=== PATIENT | male | born 1980 | race Caucasian/White ===

== ENCOUNTER 2017-12-19 07:06 | Emergency (ER) | payer BC ==
--- NOTE | 2017-12-19 07:38 | EDM.PDOC ---
ED HPI GENERAL MEDICAL PROBLEM - General Chief Complaint: General Stated Complaint: Left hip, Left rib pain Time Seen by Provider: 12/19/17 07:30 Source of Information: Reports: Patient, Old Records ([facility] chart/EMR) History Limitations: Reports: No Limitations. Denies: Intoxication - History of Present Illness INITIAL COMMENTS - FREE TEXT/NARRATIVE: Patient drove himself to the emergency room via private automobile for evaluation of progressive bruising, left hip, and left chest wall pain initial mild left forearm pain secondary to a minor fall at his home 2 days ago. The patient was shoveling snow when he slipped on the ice and fell on his left side. He did take 650 mg of aspirin at 8 AM this morning and also took all of his morning medications including his Coumadin. No history of significant head injury, loss of consciousness, change in mental status, paresthesias, neurological deficits, etc. The patient has not used topical treatments to this point. Note that the patient has had a mild nonproductive cough during the last couple of days and has also been using Mucinex. No known exposure to infection, fever, dyspnea, wheezing, etc. The patient denies any chest pain/pressure, heart flutter, dizziness, orthostasis, orthopnea, diaphoresis, paresthesias, recent decreased exercise tolerance, or any other anginal-type symptoms. No recent history of abdominal pain, heartburn, nausea, diarrhea, melena, gross hematochezia, or any food intolerance, including fatty foods, etc.. He denies any gross hematuria or other UTI symptoms. No history of recent headaches, visual changes, diplopia, change in mental status, or other change in neurological status. The patient did go to work yesterday. Onset: Sudden Onset Date: 12/17/17 Onset Time: 14:30 Duration: Constant, Getting Worse Location: Reports: Chest, Upper Extremity, Left, Lower Extremity, Left. Denies : Head, Face, Neck, Abdomen, Back, Pelvis, Upper Extremity, Right, Lower Extremity, Right, Radiates to Quality: Reports: Ache, Sharp, Stabbing Severity: Severe Improves with: Reports: Rest Worsens with: Reports: Movement Context: Reports: Trauma (As above) Associated Symptoms: Reports: Chest Pain (Chest wall), Cough. Denies: Confusion , cough w sputum, Diaphoresis, Fever/Chills, Headaches, Loss of Appetite, Malaise, Nausea/Vomiting, Rash, Seizure, Shortness of Breath, Syncope, Weakness Treatments ELECTRICIAN RADIO: Reports: Aspirin Left Thoracic Pain Score (Numeric/FACES): 9 Left Arm Pain Score (Numeric/FACES): 4 Left Hip Pain Score (Numeric/FACES): 9 - Related Data Allergies Allergy/AdvReac Type Severity Reaction Status Date / Time No Known Allergies Allergy Verified 12/19/17 07:34 Home Meds: Home Meds Lisinopril/Hydrochlorothiazide [Lisinopril-Hctz 20-12.5 mg Tab] 1 tab PO DAILY 12/19/17 [History] busPIRone [Buspar] 5 mg PO DAILY 12/19/17 [History] busPIRone [Buspar] 10 mg PO BEDTIME 12/19/17 [History] Past Medical History HEENT History: Reports: Impaired Vision, Other (See Below). Denies: Allergic Rhinitis, Cataract, Glaucoma, Hard of Hearing, Macular Degeneration, Retinal Detachment Other HEENT History: Patient wears reading glasses Cardiovascular History: Reports: Blood Clots/VTE/DVT, Heart Murmur, Hypertension , Other (See Below) Other Cardiovascular History: Severe mitral valve insufficiency with surgery as below. DVT of the left popliteal and posterior left tibial veins on 07/10/15 secondary to antiphospholipid syndrome with chronic Coumadin therapy Respiratory History: Reports: Intubation, Previous, Sleep Apnea, SOB. Denies: Asthma, COPD, Intubation, Difficult, PE, Pneumothorax, TB Gastrointestinal History: Reports: Diverticulosis, GERD, Other (See Below). Denies: Bowel Obstruction, Celiac Disease, Cholelithiasis, GI Bleed, Hepatitis, Inflammatory Bowel Disease, Irritable Bowel Syndrome, Jaundice, Pancreatitis, PUD Other Gastrointestinal History: LFTs elevation possibly secondary to fatty liver Genitourinary History: Reports: Renal Calculus, Other (See Below). Denies: Acute Renal Failure, BPH, Chronic Renal Insuffiency, STD, Urinary Incontinence, UTI, Recurrent Other Genitourinary History: Urolithiasisside unknown with spontaneous passage Musculoskeletal History: Reports: Arthritis, Back Pain, Chronic, Fracture, Gout , Neck Pain, Chronic, Osteoarthritis, Other (See Below). Denies: Amputation, RA , SLE Other Musculoskeletal History: T10T11 anterior vertebral on body compression fractures by MRI on 07/20/11. Left wrist fracture at about 8 years of age. Multiple bilateral finger fractures secondary to Judo between 1989 and 1994. Neurological History: Reports: CVA, Headaches, Chronic, TIA, Other (See Below). Denies: Cerebral Aneurysms, Concussion, Head Trauma, Migraines, MS, Parkinson' s, Seizure Other Neuro History: Nonspecific amaurosis fugax since 2009 with chronic headaches and postoperative right-sided CVA after mechanical valve replacement surgery in 2016 as below. Venous right frontal and frontoparietal CVA on . There are no chronic deficits from previous CVAs. Withdrawal symptoms from his alcohol use in the past but no seizures, etc. Psychiatric History: Reports: Anxiety, Depression, Psych Hospitalization(s), Suicidal Ideation, Other (See Below) Other Psychiatric History: History of alcohol and tobacco abuse with experimentation of illicit drugs as below. Inpatient treatment for substance abuse and suicidal ideation on 06/08/14 Endocrine/Metabolic History: Reports: None. Denies: Diabetes, Type I, Diabetes , Type II, Diabetes Mellitus, Type 3c, Hypothyroidism, IDDM Hematologic History: Reports: Blood Transfusion(s), Other (See Below). Denies: Anemia, Iron Deficiency Other Hematologic History: Blood transfusions after mitral valve replacement in 2016 as above. History of antiphospholipid disorder. Immunologic History: Reports: None. Denies: AIDS, HIV, SLE Oncologic (Cancer) History: Reports: None. Denies: Basal Cell Carcinoma, Hodgkin's Lymphoma, Leukemia, Lymphoma, Malignant Melanoma, Non-Hodgkin's Lymphoma, Squamous Cell Carcinoma Dermatologic History: Denies: Eczema, Psoriasis - Past Surgical History Head Surgeries/Procedures: Reports: None HEENT Surgical History: Reports: Oral Surgery, Other (See Below). Denies: Adenoidectomy, Cataract Surgery, Detached Retina, Eye Surgery, Laser Surgery, LASIK, Myringotomy w Tube(s), Naso-Sinus Surgery, Tonsillectomy Other HEENT Surgeries/Procedures: [place] teeth extraction 4 initially top 2 at age 16 with bottom 2 at age 18 Cardiovascular Surgical History: Reports: Valve Replacement, Other (See Below) Other Cardiovascular Surgeries/Procedures: Mechanical mitral valve replacement on 01/13/16 Respiratory Surgical History: Reports: None. Denies: Thoracentesis GI Surgical History: Denies: Appendectomy, Cholecystectomy, Colonoscopy, EGD, Hernia, Abdominal, Hernia, Inguinal, Hernia Repair/Other Male Surgical History: Reports: Circumcision, Other (See Below). Denies: Vasectomy Other Male Surgeries/Procedures: Circumcision as an Endocrine Surgical History: Reports: None. Denies: Thyroid Biopsy Neurological Surgical History: Reports: None. Denies: C-Spine, Discectomy, Laminectomy, Lumbar Spine, Sacral Spine, Spinal Fusion, Vertebroplasty Musculoskeletal Surgical History: Reports: None. Denies: Arthroscopic Procedure , Carpal Tunnel, Ganglion Cyst, Joint Replacement, ORIF, Shoulder Surgery Oncologic Surgical History: Reports: None Dermatological Surgical History: Reports: None - Past Imaging History Past Imaging History: Reports: Cardiac Echo (01/01/16 with mitral valve disorder as above with subsequent transesophageal echocardiogram on 01/07/16 with echocardiogram on 07/13/11 showing only mild mitral valve disease with ejection fraction of 56%), Carotid US (10/11/10), CAT Scan (Negative CTA of the chest on 04/15/16. Soft tissue ultrasound of the right ear on 02/02/12. CT of the head on and 10/11/10.), MRA (Head on 10/20/10), MRI (MRA of the brain on 07/13/11 with right CVA as above with previous normal MRI of the brain on 12/01/10. MRI of the cervical and thoracic spines on 07/20/11), Stress Testing (Low level cardiac stress test on 01/21/16), Ultrasound (Soft tissue ultrasound of the right ear on 02/02/12. Renal ultrasound on 08/13/10), Venous Doppler (Lower extremities bilaterally on 07/10/15 with findings as above) Social & Family History - Tobacco Use Smoking Status *Q: Current Every Day Smoker Tobacco Use Within Last Twelve Months: Cigarettes Years of Tobacco use: 20 Packs/Tins Daily: 0.5 (Started smoking at age 17) Used Tobacco, but Quit: No Smoking Cessation Information Provided To Patient: Yes Second Hand Smoke Exposure: No Second Hand Smoke Education Provided: No - Alcohol Use Alcohol Use History: Yes Days Per Week of Alcohol Use: 3 (Previous history of alcohol abuse with treatment as above. Note DWI at age 32) Number of Drinks Per Day: 2 Total Drinks Per Week: 6 Alcohol Use in Last Twelve Months: Yes - Recreational Drug Use Recreational Drug Use: Yes Drug Use in Last 12 Months: No Recreational Drug Type: Reports: Amphetamines (Speed), Cocaine, LSD (Acid), Marijuana/Hashish, Methamphetamine, Oxycodone, Psilocybin (Mushrooms). Denies: Heroin, Inhalants (Glues, Solvents, Aerosols), Morphine Other Recreational Drug Type: Illicit drug use as above between ages 20 and 25 with no drug treatment by history Recreational Drug Use Frequency: Socially Recreational Drug Route: Reports: Inhaled. Denies: Intravenous - Living Situation & Occupation Living situation: Reports: ( 2 stepchildren with 2 natural children, however One child given up for adoption in 1979), with Family ( and 3 children) Occupation: Employed ([employer]) ED ROS GENERAL - Review of Systems Review Of Systems: ROS reveals no pertinent complaints other than HPI. ED EXAM, GENERAL - Physical Exam Exam: See Below Exam Limited By: No Limitations General Appearance: Alert, WD/WN, No Apparent Distress Head: Normocephalic, Other (Small 1 cm superficial scratch over the left cheek) . No: Facial Swelling, Facial Tenderness, Sinus Tenderness Neck: Normal Inspection, Supple, Non-Tender, Full Range of Motion. No: Lymphadenopathy (L), Lymphadenopathy (R), Thyromegaly Respiratory/Chest: No Respiratory Distress, Lungs Clear, Normal Breath Sounds, No Accessory Muscle Use, Other (1012 cm in diameter moderate ecchymosis over the lateral mid left axillary chest region). No: Chest Non-Tender (Moderate localized palpation pain at site of bruising as below with no crepitation, deformity, or sign of fracture), Pleural Rub, Retractions, Splinting Cardiovascular: Normal Peripheral Pulses, Regular Rate, Rhythm, No Edema, No Gallop, No JVD, No Murmur, No Rub, Other (Mechanical mitral valve click). No: Gallop/S3, Gallop/S4, Friction Rub GI/Abdominal: Normal Bowel Sounds, Soft, Non-Tender, No Organomegaly, No Distention, No Abnormal Bruit, No Mass, Pelvis Stable. No: Guarding (Male) Exam: Deferred Rectal (Males) Exam: Deferred Back Exam: Normal Inspection, Full Range of Motion. No: CVA Tenderness (L), CVA Tenderness (R), Muscle Spasm Extremities: No Pedal Edema, Normal Capillary Refill, Leg Pain (Large ecchymosis of 16 cm in diameter over the lateral surface of the left hip with moderate localized tenderness. Additional 2 cm minimal bruising over the mid ulnar aspect of the left forearm with no significant localized tenderness, deformity, etc.), Limited Range of Motion (Left hip secondary to pain and bruising with no instability, subluxation, deformity, or sign of fracture). No : Tomer's Sign, Increased Warmth Neurological: Alert, Oriented, CN II-XII Intact, Normal Cognition, Normal Gait, Normal Reflexes, No Motor/Sensory Deficits Psychiatric: Normal Affect, Normal Mood Skin Exam: Warm, Dry, Ecchymosis (As above), Wound/Incision (Superficial facial abrasion as above). No: Diaphoretic, Petechiae Lymphatic: No Adenopathy Course - Vital Signs Last Recorded V/S: Last Vital Signs Temp 37.0 C 12/19/17 07:07 Pulse 108 H 12/19/17 07:07 Resp 16 12/19/17 07:07 BP 135/78 12/19/17 07:07 Pulse Ox 98 12/19/17 07:07 Vital Signs - 24 hr 12/19/17 12/19/17 07:07 09:02 Temperature [ 37.0 C Oral] Pulse, 108 H 88 Peripheral [ Left Pulse Oximetry] Respiratory 16 14 Rate Blood Pressure 135/78 112/65 [Left Upper Arm ] O2 Sat by Pulse 98 100 Oximetry - Orders/Labs/Meds Orders: Active Orders 24 hr Category Date Time Status Peripheral IV Care [RC] . DIRECTED Care 12/19/17 08:37 Ordered Hip Min 2V or 3V w Pelvis Lt [CR] Stat Exams 12/19/17 07:39 Ordered Ribs 2V w Chest Lt [CR] Stat Exams 12/19/17 07:40 Ordered Phytonadione [AquaMephyton] 5 mg Med 12/19/17 08:35 Ordered Sodium Chloride 0.9% [Normal Saline] 50 ml IV NOW Sodium Chloride 0.9% [Saline Flush] Med 12/19/17 08:37 Ordered 10 ml FLUSH ASDIRECTED PRN Obtain Past Medical Record [OM.PC] Routine Oth 12/19/17 07:38 Active Peripheral IV Insertion Adult [OM.PC] Routine Oth 12/19/17 08:37 Ordered Medication Orders Phytonadione 5 mg/ Sodium (Chloride) 50.5 mls @ 100 mls/hr IV NOW ONE Stop: 12/19/17 09:05 Last Admin: 12/19/17 08:45 Dose: 100 mls/hr Sodium Chloride (Saline Flush) 10 ml FLUSH ASDIRECTED PRN PRN Reason: Keep Vein Open Last Admin: 12/19/17 08:45 Dose: 10 ml Labs: Laboratory Tests 12/19/17 12/19/17 12/19/17 Range/Units 07:45 07:45 07:45 WBC 4.1 (4.0-10.2) K/uL RBC 4.31 L (4.33-5.41) M/uL Hgb 14.1 (13.1-16.8) g/dL Hct 41.0 (39.0-49.0) % MCV 95.1 D (84.0-98.0) fL MCH 32.7 (28.2-33.3) pg MCHC 34.4 (31.7-36.0) g/dL RDW 15.7 H (11.2-14.1) % Plt Count 184 D (150-350) K/uL Neut % (Auto) 65.6 (45.0-80.0) % Lymph % (Auto) 19.7 (10.0-50.0) % [place] % (Auto) 12.3 (2.0-14.0) % Eos % (Auto) 2.2 (0.0-5.0) % Baso % (Auto) 0.2 (0.0-2.0) % Neut # (Auto) 2.67 (1.40-7.00) K/uL Lymph # (Auto) 0.80 (0.50-3.50) K/uL [place] # (Auto) 0.50 (0.00-1.00) K/uL Eos # (Auto) 0.09 (0.00-0.50) K/uL Baso # (Auto) 0.01 (0.00-0.20) K/uL PT 86.3 H (9.8-11.7) SEC INR 7.7 H* Sodium 137 (136-145) mmol/L Potassium 4.2 (3.5-5.1) mmol/L Chloride 99 (98-107) mmol/L Carbon Dioxide 28.0 (21.0-32.0) mmol/L BUN 15 (7-18) mg/dL Creatinine 0.97 (0.51-1.17) mg/dL Est Cr Clr Drug Dosing 124.62 mL/min Estimated GFR (MDRD) > 60 mL/min Glucose 114 H (74-106) mg/dL Calcium 9.5 (8.5-10.1) mg/dL Total Bilirubin 1.0 (0.2-1.0) mg/dL AST 54 H (15-37) U/L ALT 91 H (12-78) U/L Alkaline Phosphatase 68 (46-116) IU/L Total Protein 7.5 (6.4-8.2) g/dL Albumin 3.8 (3.4-5.0) g/dL Meds: Medications Generic Name Dose Route Start Last Admin Trade Name Freq PRN Reason Stop Dose Admin Phytonadione 5 mg/ Sodium 50.5 mls @ 100 mls/hr 12/19/17 08:35 12/19/17 08:45 Chloride IV 12/19/17 09:05 100 mls/hr NOW ONE Administration Sodium Chloride 10 ml 12/19/17 08:37 12/19/17 08:45 Saline Flush FLUSH 10 ml ASDIRECTED PRN Administration Keep Vein Open - Radiology Interpretation Free Text/Narrative:: X-rays of the chest, one view, with lateral views of the left ribs shows no evidence of fracture, pneumothorax, pulmonary infiltrates/contusions, CHF or cardiomegaly. Note status post medial sternotomy and mechanical mitral valve replacement. 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 Note secondary to rotational artifact from the right hip 2 additional views of the right hip were taken verify absence of any abnormalities Departure - Departure Time of Disposition: 09:35 Disposition: Home, Self-Care 01 Condition: Good Clinical Impression: Multiple contusions, History of mitral valve replacement with mechanical valve , Mixed anxiety depressive disorder, Tobacco abuse counseling, Peptic reflux disease, Elevated INR, Elevated LFTs Hypertension Qualifiers: Hypertension type: essential hypertension Qualified Code(s): I10 - Essential ( primary) hypertension Gout Qualifiers: Gout site: unspecified site Gout etiology: unspecified cause Chronicity: chronic Presence of tophus: without tophus Qualified Code(s): M1A.9XX0 - Chronic gout, unspecified, without tophus (tophi) Sleep apnea Qualifiers: Sleep apnea type: unspecified type Qualified Code(s): G47.30 - Sleep apnea, unspecified COPD (chronic obstructive pulmonary disease) Qualifiers: COPD type: emphysema Emphysema type: panlobular Qualified Code(s): J43.1 - Panlobular emphysema - Discharge Information Instructions: Warfarin: What You Need to Know, Contusion, [id number] Referrals: Dorcas Brunson NP [Primary Care Provider] - Forms: ED Department Discharge, ED Return to Work/School Form Additional Instructions: 1. Follow up with your regular provider tomorrow for reevaluation and recommended repeat CBC and PT/INR. Notify your provider at that time that that you did receive vitamin K in your veins during today's ER visit 2. BenGay or equivalent, heating pad, and/or ice packs as directed. 3. Strict no fall and injury precautions until released by your regular provider 4. Stop all tobacco use SHIRLENE as directed/per provided information and consider contacting Quit LIne, etc.. 5. Strict no use of Coumadin, aspirin, ibuprofen, Aleve, or other NSAIDs until otherwise directed by your regular provider 6. Work excuse- See Form 7. Discontinue all alcohol use as discussed/recommended 8. Recommend repeat LFTs within the next 7-10 days 9. Discontinue use of Mucinex and contact your regular provider prior to initiating any OTC medications on a regular basis secondary to current Coumadin therapy 10. Discuss with your regular provider whether you are a candidate for CPAP therapy - Problem List & Annotations (1) Elevated INR SNOMED Code(s): 170998872 Code(s): R79.1 - ABNORMAL COAGULATION PROFILE Status: Acute Priority: High Current Visit: Yes Onset Date: 12/19/17 Annotation/Comment:: The patient insists that he has not used any other medications other than one dose of aspirin and only some Mucinex during the last couple of days as above. Current normal INR 3.1 one week ago. He was given information concerning Coumadin therapy. His Coumadin will be held with close follow-up by his regular provider as per discharge instructions. IV vitamin K given. He was also provided a work excuse with strict fall, injury, etc. precautions extensively discussed. The patient was extensively counseled on the importance of close follow-up of his INRs by his regular provider possibly on a daily basis secondary to IV vitamin K therapy today. (2) Multiple contusions SNOMED Code(s): 992779116 Code(s): T07.XXXA - UNSPECIFIED MULTIPLE INJURIES, INITIAL ENCOUNTER Status : Acute Priority: High Current Visit: Yes Onset Date: 12/17/17 Annotation/Comment:: Contusions with no evidence of significant injury, fracture , etc.. Symptomatic relief as per discharge instructions. Note elevated INR (3) History of mitral valve replacement with mechanical valve SNOMED Code(s): 77546509950607 Code(s): Z95.2 - PRESENCE OF PROSTHETIC HEART VALVE Status: Chronic Priority: Medium Current Visit: Yes Onset Date: 01/13/16 Annotation/ Comment:: No anginal type symptoms as above. Note elevated INR with previous history of antiphospholipid lipid syndrome with chronic Coumadin therapy (4) Elevated LFTs SNOMED Code(s): 856408596 Code(s): R79.89 - OTHER SPECIFIED ABNORMAL FINDINGS OF BLOOD CHEMISTRY Status: Chronic Priority: Medium Current Visit: Yes Annotation/Comment:: History of elevated LFTs by review of medical records. He does not know his cholesterol status. LFTs elevation likely secondary to his alcohol use and possible fatty liver. Close follow-up by his regular provider (5) Antiphospholipid syndrome SNOMED Code(s): 94009416 Code(s): D68.61 - ANTIPHOSPHOLIPID SYNDROME Status: Chronic Priority: High Current Visit: Yes Annotation/Comment:: Elevated INR as above with previous history of DVT (6) COPD (chronic obstructive pulmonary disease) SNOMED Code(s): 22516061 Code(s): J44.9 - CHRONIC OBSTRUCTIVE PULMONARY DISEASE, UNSPECIFIED Status : Chronic Priority: Medium Current Visit: Yes Annotation/Comment:: COPD by chest x-ray with no current medical therapy. Only minimal mostly viral bronchitic type symptoms at this time. Consider PFTs pending on his clinical course. Note current tobacco use Qualifiers: COPD type: emphysema Emphysema type: panlobular Qualified Code(s): J43.1 - Panlobular emphysema (7) Gout SNOMED Code(s): 31326463 Code(s): M10.9 - GOUT, UNSPECIFIED Status: Chronic Priority: Medium Current Visit: Yes Annotation/Comment:: History of distant gout with his osteoarthritis otherwise in good control. Note probable coxarthrosis bilaterally by today's x-rays with no significant current complaints Qualifiers: Gout site: unspecified site Gout etiology: unspecified cause Chronicity: chronic Presence of tophus: without tophus Qualified Code(s): M1A.9XX0 - Chronic gout, unspecified, without tophus (tophi) (8) Hypertension SNOMED Code(s): 33894817 Code(s): I10 - ESSENTIAL (PRIMARY) HYPERTENSION Status: Chronic Priority : Medium Current Visit: Yes Annotation/Comment:: Stable by history and in the emergency room Qualifiers: Hypertension type: essential hypertension Qualified Code(s): I10 - Essential (primary) hypertension (9) Mixed anxiety depressive disorder SNOMED Code(s): 442209914 Code(s): F41.8 - OTHER SPECIFIED ANXIETY DISORDERS Status: Chronic Priority: Medium Current Visit: Yes Annotation/Comment:: Stable by history with history of alcohol and illicit drug abuse (10) Peptic reflux disease SNOMED Code(s): 16026354 Code(s): K21.9 - GASTRO-ESOPHAGEAL REFLUX DISEASE WITHOUT ESOPHAGITIS Status: Chronic Priority: Medium Current Visit: Yes Annotation/Comment:: Stable by history (11) Sleep apnea SNOMED Code(s): 06157933 Code(s): G47.30 - SLEEP APNEA, UNSPECIFIED Status: Chronic Current Visit : Yes Annotation/Comment:: Patient has never used CPAP. Discuss further with his regular provider as per discharge instructions Qualifiers: Sleep apnea type: unspecified type Qualified Code(s): G47.30 - Sleep apnea , unspecified (12) GERD (gastroesophageal reflux disease) SNOMED Code(s): 698304671 Code(s): K21.9 - GASTRO-ESOPHAGEAL REFLUX DISEASE WITHOUT ESOPHAGITIS Status: Chronic Current Visit: Yes Annotation/Comment:: Stable by history Qualifiers: Esophagitis presence: without esophagitis Qualified Code(s): K21.9 - Gastro -esophageal reflux disease without esophagitis - Problem List Review Problem List Initiated/Reviewed/Updated: Yes - My Orders Last 24 Hours: My Active Orders 12/19/17 07:38 Obtain Past Medical Record [OM.PC] Routine 12/19/17 07:39 Hip Min 2V or 3V w Pelvis Lt [CR] Stat 12/19/17 07:40 Ribs 2V w Chest Lt [CR] Stat 12/19/17 08:35 Phytonadione [AquaMephyton] 5 mg Sodium Chloride 0.9% [Normal Saline] 50 ml IV NOW 12/19/17 08:37 Peripheral IV Care [RC] . DIRECTED Sodium Chloride 0.9% [Saline Flush] 10 ml FLUSH ASDIRECTED PRN Peripheral IV Insertion Adult [OM.PC] Routine - Assessment/Plan Last 24 Hours: My Active Orders 12/19/17 07:38 Obtain Past Medical Record [OM.PC] Routine 12/19/17 07:39 Hip Min 2V or 3V w Pelvis Lt [CR] Stat 12/19/17 07:40 Ribs 2V w Chest Lt [CR] Stat 12/19/17 08:35 Phytonadione [AquaMephyton] 5 mg Sodium Chloride 0.9% [Normal Saline] 50 ml IV NOW 12/19/17 08:37 Peripheral IV Care [RC] . DIRECTED Sodium Chloride 0.9% [Saline Flush] 10 ml FLUSH ASDIRECTED PRN Peripheral IV Insertion Adult [OM.PC] Routine Assessment:: As above Plan: As above. Extensive precautions were given to the patient, who is in agreement with the treatment plan. See Patient Instructions for further treatment and plan.
[2017-12-19 08:12] LABS: CHLORIDE,CL 99 mmol/L (98-107); SODIUM,NA 137 mmol/L (136-145)
[2017-12-19] MEDS ORDERED: Phytonadione 5 MG in Sodium Chloride 0.9% 50 ML IV ONE (08:35)
[2017-12-19] MEDS: Sodium Chloride 0.9% 10 ML Syringe FLUSH PRN ×2 (08:45→09:31)
[2017-12-19 09:02] VITALS: BP 112/65
== END 2017-12-19 09:35 | disposition home or self-care (01) ==
LOC: LL.ED 07:06
DX: S70.02XA Contusion of left hip, initial encounter (principal); S20.212A Contusion of left front wall of thorax, initial encounter; S50.12XA Contusion of left forearm, initial encounter; S00.81XA Abrasion of other part of head, initial encounter; I10 Essential (primary) hypertension; F41.8 Other specified anxiety disorders; K21.9 Gastro-esophageal reflux disease without esophagitis; M1A.9XX0 Chronic gout, unspecified, without tophus (tophi); G47.30 Sleep apnea, unspecified; J43.1 Panlobular emphysema; F17.210 Nicotine dependence, cigarettes, uncomplicated; R79.89 Other specified abnormal findings of blood chemistry; R79.1 Abnormal coagulation profile; Z95.2 Presence of prosthetic heart valve; Z71.6 Tobacco abuse counseling; Z79.899 Other long term (current) drug therapy; W00.0XXA Fall on same level due to ice and snow, initial encounter; Y93.H1 Activity, digging, shoveling and raking; Y92.009 Unspecified place in unspecified non-institutional (private) residence as the place of occurrence of the external cause
CPT/HCPCS: 36415; 71101; 73502; 80053; 85025; 85610; 96365; 99284; J3430; J7050

== ENCOUNTER 2018-06-10 19:35 | Emergency (ER) | payer BC ==
[2018-06-10 20:14] LABS: CHLORIDE,CL 101 mmol/L (98-107); SODIUM,NA 138 mmol/L (136-145)
[2018-06-10] MEDS ORDERED: Sodium Chloride 0.9% 10 ML Syringe FLUSH PRN (20:58)
[2018-06-10] MEDS ORDERED: LORazepam 1 MG Tab PO ONE (21:08)
[2018-06-10] MEDS ORDERED: Phytonadione ORAL 2.5mg/2.5ml Soln Simple Syrup U/D PO ONE (21:08)
--- NOTE | 2018-06-10 21:17 | EDM.PDOC ---
ED HPI GENERAL MEDICAL PROBLEM - General Chief Complaint: General Stated Complaint: fell last night and hurt back, pt intoxicated also Time Seen by Provider: 06/10/18 20:06 Source of Information: Reports: Patient History Limitations: Reports: Intoxication - History of Present Illness INITIAL COMMENTS - FREE TEXT/NARRATIVE: Patient comes to ER with presenting complaint of falling last night. Says he slipped on stairs, fell directly onto buttocks/low back, and slid on his rear/ back down the steps. No LOC. Denies hitting head. Has noticed a large bruise develop in this area since then and is concerned as he takes Coumadin. Says last INR was several weeks ago and was "1.2". Patient is obviously intoxicated. Admits to drinking when asked. Has been seen at our facility multiple times previously for ETOH related falls/issues. Patient also admits feeling suicidal. Says he has access to a gun. Hear's voices that tell him he is worthless. Plan is to shoot self. Denies homicidal ideation but admits that he is bullied by one particular person at work and has had thoughts of injuring him at time. Was recently at [facility] for 24 hours due to psych concerns but was released with no follow up plans. Pt has been to detox/treatment three times without improvement in his drinking. He says he wants help with his drinking and suicidal thoughts but does not know what to do. . Lives in basement of house. Spouse does not talk to him because of his alcoholism. Has one child and two stepchildren. Had DUI about 6 months ago per self report. Is not supposed to be driving and should be wearing an ankle bracelet. Admits to driving to work but says he does not drive anywhere else. Has cast on right arm due to self-reported metacarpal fracture. - Related Data Allergies Allergy/AdvReac Type Severity Reaction Status Date / Time No Known Allergies Allergy Verified 06/10/18 19:37 Home Meds: Home Meds Lisinopril/Hydrochlorothiazide [Lisinopril-Hctz 20-12.5 mg Tab] 1 tab PO DAILY 12/19/17 [History] busPIRone [Buspar] 5 mg PO DAILY 12/19/17 [History] busPIRone [Buspar] 10 mg PO BEDTIME 12/19/17 [History] Warfarin [Coumadin] 15 mg PO DAILY 06/10/18 [History] Past Medical History - Past Health History Medical/Surgical History: Denies Medical/Surgical History HEENT History: Reports: Impaired Vision, Other (See Below). Denies: Allergic Rhinitis, Cataract, Glaucoma, Hard of Hearing, Macular Degeneration, Retinal Detachment Other HEENT History: Patient wears reading glasses Cardiovascular History: Reports: Blood Clots/VTE/DVT, Heart Murmur, Hypertension , Other (See Below) Other Cardiovascular History: Severe mitral valve insufficiency with surgery as below. DVT of the left popliteal and posterior left tibial veins on 07/10/15 secondary to antiphospholipid syndrome with chronic Coumadin therapy Respiratory History: Reports: Intubation, Previous, Sleep Apnea, SOB. Denies: Asthma, COPD, Intubation, Difficult, PE, Pneumothorax, TB Gastrointestinal History: Reports: Diverticulosis, GERD, Other (See Below). Denies: Bowel Obstruction, Celiac Disease, Cholelithiasis, GI Bleed, Hepatitis, Inflammatory Bowel Disease, Irritable Bowel Syndrome, Jaundice, Pancreatitis, PUD Other Gastrointestinal History: LFTs elevation possibly secondary to fatty liver Genitourinary History: Reports: Renal Calculus, Other (See Below). Denies: Acute Renal Failure, BPH, Chronic Renal Insuffiency, STD, Urinary Incontinence, UTI, Recurrent Other Genitourinary History: Urolithiasisside unknown with spontaneous passage Musculoskeletal History: Reports: Arthritis, Back Pain, Chronic, Fracture, Gout , Neck Pain, Chronic, Osteoarthritis, Other (See Below). Denies: Amputation, RA , SLE Other Musculoskeletal History: [id number] anterior vertebral on body compression fractures by MRI on 07/20/11. Left wrist fracture at about 8 years of age. Multiple bilateral finger fractures secondary to Judo between 1989 and 1994. Neurological History: Reports: CVA, Headaches, Chronic, TIA, Other (See Below). Denies: Cerebral Aneurysms, Concussion, Head Trauma, Migraines, MS, Parkinson' s, Seizure Other Neuro History: Nonspecific amaurosis fugax since 2009 with chronic headaches and postoperative right-sided CVA after mechanical valve replacement surgery in 2016 as below. Venous right frontal and frontoparietal CVA on . There are no chronic deficits from previous CVAs. Withdrawal symptoms from his alcohol use in the past but no seizures, etc. Psychiatric History: Reports: Anxiety, Depression, Psych Hospitalization(s), Suicidal Ideation, Other (See Below) Other Psychiatric History: History of alcohol and tobacco abuse with experimentation of illicit drugs as below. Inpatient treatment for substance abuse and suicidal ideation on 06/08/14. Recent one day stay at [facility] due to suicidal thoughts. Endocrine/Metabolic History: Reports: None. Denies: Diabetes, Type I, Diabetes , Type II, Diabetes Mellitus, Type 3c, Hypothyroidism, IDDM Hematologic History: Reports: Blood Transfusion(s), Other (See Below). Denies: Anemia, Iron Deficiency Other Hematologic History: Blood transfusions after mitral valve replacement in 2016 as above. History of antiphospholipid disorder. Immunologic History: Reports: None. Denies: AIDS, HIV, SLE Oncologic (Cancer) History: Reports: None. Denies: Basal Cell Carcinoma, Hodgkin's Lymphoma, Leukemia, Lymphoma, Malignant Melanoma, Non-Hodgkin's Lymphoma, Squamous Cell Carcinoma - Past Surgical History Head Surgeries/Procedures: Reports: None HEENT Surgical History: Reports: Oral Surgery, Other (See Below). Denies: Adenoidectomy, Cataract Surgery, Detached Retina, Eye Surgery, Laser Surgery, LASIK, Myringotomy w Tube(s), Naso-Sinus Surgery, Tonsillectomy Other HEENT Surgeries/Procedures: [place] teeth extraction 4 initially top 2 at age 16 with bottom 2 at age 18 Cardiovascular Surgical History: Reports: Valve Replacement, Other (See Below) Other Cardiovascular Surgeries/Procedures: Mechanical mitral valve replacement on 01/13/16 Respiratory Surgical History: Reports: None. Denies: Thoracentesis Male Surgical History: Reports: Circumcision, Other (See Below). Denies: Vasectomy Other Male Surgeries/Procedures: Circumcision as an infant Endocrine Surgical History: Reports: None. Denies: Thyroid Biopsy Neurological Surgical History: Reports: None. Denies: C-Spine, Discectomy, Laminectomy, Lumbar Spine, Sacral Spine, Spinal Fusion, Vertebroplasty Musculoskeletal Surgical History: Reports: None. Denies: Arthroscopic Procedure , Carpal Tunnel, Ganglion Cyst, Joint Replacement, ORIF, Shoulder Surgery Oncologic Surgical History: Reports: None Dermatological Surgical History: Reports: None - Past Imaging History Past Imaging History: Reports: Cardiac Echo (01/01/16 with mitral valve disorder as above with subsequent transesophageal echocardiogram on 01/07/16 with echocardiogram on 07/13/11 showing only mild mitral valve disease with ejection fraction of 56%), Carotid US (10/11/10), CAT Scan (Negative CTA of the chest on 04/15/16. Soft tissue ultrasound of the right ear on 02/02/12. CT of the head on and 10/11/10.), MRA (Head on 10/20/10), MRI (MRA of the brain on 07/13/11 with right CVA as above with previous normal MRI of the brain on 12/01/10. MRI of the cervical and thoracic spines on 07/20/11), Stress Testing (Low level cardiac stress test on 01/21/16), Ultrasound (Soft tissue ultrasound of the right ear on 02/02/12. Renal ultrasound on 08/13/10), Venous Doppler (Lower extremities bilaterally on 07/10/15 with findings as above) Social & Family History - Living Situation & Occupation Living situation: Reports: ( 2 stepchildren with 2 natural children, however One child given up for adoption in 1979), with Family ( and 3 children) Occupation: Employed ([employer]) ED ROS GENERAL - Review of Systems Review Of Systems: ROS reveals no pertinent complaints other than HPI. ED EXAM, GENERAL - Physical Exam Exam: See Below Exam Limited By: Intoxication General Appearance: Alert, Other (smells of ETOH, intoxicated, no acute distress. Is sore in low back area when he bends over, rolls over in bed, gets up from laying down or from sit to stand. ) Eye Exam: Bilateral Eye: EOMI, PERRL Nose: No: Nasal Deformity, Nasal Swelling, Nasal Drainage Throat/Mouth: Normal Lips, Normal Voice, No Airway Compromise Head: Atraumatic, Normocephalic Neck: Supple, Non-Tender, Full Range of Motion Respiratory/Chest: No Respiratory Distress, Lungs Clear, Normal Breath Sounds, No Accessory Muscle Use, Chest Non-Tender Cardiovascular: Normal Peripheral Pulses, Regular Rate, Rhythm, No Edema Peripheral Pulses: 2+: Radial (L), Radial (R) GI/Abdominal: Normal Bowel Sounds, Soft, Non-Tender, No Distention (Male) Exam: Deferred Rectal (Males) Exam: Deferred Back Exam: Other (large area of bruising/hematoma formation bilateral low back. Tender with palpation over this area and over lumbar vertebrae. Tender with palpation upper buttocks bilaterally. + straight leg raise bilaterally. ) Extremities: Normal Capillary Refill, Limited Range of Motion (limited ability to lift knees while standing or raise legs up while laying due to increasing the low back discomfort bilaterally. ). No: Increased Warmth Neurological: Alert, Oriented, Other (intoxicated. Muscle tone/strength appears symmetric upper and lower limbs) Psychiatric: Depressed Mood, Tearful Skin Exam: Warm, Dry, Ecchymosis (on low back area) Course - Vital Signs Last Recorded V/S: Last Vital Signs Temp 36.6 C 06/10/18 19:50 Pulse 90 06/10/18 19:50 Resp 112 H 06/10/18 19:50 BP 112/67 06/10/18 19:50 Pulse Ox 93 L 06/10/18 19:50 - Orders/Labs/Meds Orders: Active Orders 24 hr Category Date Time Status Lumbar Spine wo Cont [CT] Stat Exams 06/10/18 20:32 Ordered DRUG SCREEN, URINE [URCHEM] Stat Lab 06/10/18 19:49 Ordered Sodium Chloride 0.9% [Saline Flush] Med 06/10/18 20:58 Ordered 10 ml FLUSH ASDIRECTED PRN Saline Lock Insert [OM.PC] Stat Oth 06/10/18 20:57 Ordered Medication Orders Sodium Chloride (Saline Flush) 10 ml FLUSH ASDIRECTED PRN PRN Reason: Keep Vein Open Last Admin: 06/10/18 21:17 Dose: 10 ml Labs: Laboratory Tests 06/10/18 06/10/18 06/10/18 Range/Units 19:52 19:52 19:52 WBC 7.4 (4.0-10.2) K/uL RBC 4.54 (4.33-5.41) M/uL Hgb 13.5 (13.1-16.8) g/dL Hct 39.3 (39.0-49.0) % MCV 86.6 D (84.0-98.0) fL MCH 29.7 (28.2-33.3) pg MCHC 34.4 (31.7-36.0) g/dL RDW 16.7 H (11.2-14.1) % Plt Count 188 (150-350) K/uL Neut % (Auto) 54.5 (45.0-80.0) % Lymph % (Auto) 32.7 (10.0-50.0) % [place] % (Auto) 10.4 (2.0-14.0) % Eos % (Auto) 2.3 (0.0-5.0) % Baso % (Auto) 0.1 (0.0-2.0) % Neut # (Auto) 4.02 (1.40-7.00) K/uL Lymph # (Auto) 2.41 (0.50-3.50) K/uL [place] # (Auto) 0.77 (0.00-1.00) K/uL Eos # (Auto) 0.17 (0.00-0.50) K/uL Baso # (Auto) 0.01 (0.00-0.20) K/uL PT > 120.0 H D (9.8-11.7) SEC INR Sodium 138 (136-145) mmol/L Potassium 3.6 (3.5-5.1) mmol/L Chloride 101 (98-107) mmol/L Carbon Dioxide 21.8 (21.0-32.0) mmol/L BUN 22 H (7-18) mg/dL Creatinine 1.09 (0.51-1.17) mg/dL Est Cr Clr Drug Dosing TNP Estimated GFR (MDRD) > 60 mL/min Glucose 97 (74-106) mg/dL Calcium 8.5 (8.5-10.1) mg/dL Total Bilirubin 0.5 (0.2-1.0) mg/dL AST 44 H (15-37) U/L ALT 42 (12-78) U/L Alkaline Phosphatase 65 (46-116) IU/L Total Protein 7.4 (6.4-8.2) g/dL Albumin 3.6 (3.4-5.0) g/dL Urine Opiates Screen (NEGATIVE) Urine Methadone Screen (NEGATIVE) U Acetaminophen Screen (NEGATIVE) Ur Barbiturates Screen (NEGATIVE) Ur Tricyclics Screen (NEGATIVE) Ur Phencyclidine Scrn (NEGATIVE) Ur Amphetamine Screen (NEGATIVE) U Methamphetamines Scrn (NEGATIVE) U Benzodiazepines Scrn (NEGATIVE) U Cocaine Metab Screen (NEGATIVE) U Marijuana (THC) Screen (NEGATIVE) Ethyl Alcohol 0.314 H (0.000-0.080) g/dL 06/10/18 Range/Units 20:50 WBC (4.0-10.2) K/uL RBC (4.33-5.41) M/uL Hgb (13.1-16.8) g/dL Hct (39.0-49.0) % MCV (84.0-98.0) fL MCH (28.2-33.3) pg MCHC (31.7-36.0) g/dL RDW (11.2-14.1) % Plt Count (150-350) K/uL Neut % (Auto) (45.0-80.0) % Lymph % (Auto) (10.0-50.0) % [place] % (Auto) (2.0-14.0) % Eos % (Auto) (0.0-5.0) % Baso % (Auto) (0.0-2.0) % Neut # (Auto) (1.40-7.00) K/uL Lymph # (Auto) (0.50-3.50) K/uL [place] # (Auto) (0.00-1.00) K/uL Eos # (Auto) (0.00-0.50) K/uL Baso # (Auto) (0.00-0.20) K/uL PT (9.8-11.7) SEC INR Sodium (136-145) mmol/L Potassium (3.5-5.1) mmol/L Chloride (98-107) mmol/L Carbon Dioxide (21.0-32.0) mmol/L BUN (7-18) mg/dL Creatinine (0.51-1.17) mg/dL Est Cr Clr Drug Dosing Estimated GFR (MDRD) mL/min Glucose (74-106) mg/dL Calcium (8.5-10.1) mg/dL Total Bilirubin (0.2-1.0) mg/dL AST (15-37) U/L ALT (12-78) U/L Alkaline Phosphatase (46-116) IU/L Total Protein (6.4-8.2) g/dL Albumin (3.4-5.0) g/dL Urine Opiates Screen Negative (NEGATIVE) Urine Methadone Screen Negative (NEGATIVE) U Acetaminophen Screen Negative (NEGATIVE) Ur Barbiturates Screen Negative (NEGATIVE) Ur Tricyclics Screen Negative (NEGATIVE) Ur Phencyclidine Scrn Negative (NEGATIVE) Ur Amphetamine Screen Negative (NEGATIVE) U Methamphetamines Scrn Negative (NEGATIVE) U Benzodiazepines Scrn Negative (NEGATIVE) U Cocaine Metab Screen Negative (NEGATIVE) U Marijuana (THC) Screen Negative (NEGATIVE) Ethyl Alcohol (0.000-0.080) g/dL Meds: Medications Generic Name Dose Route Start Last Admin Trade Name Freq PRN Reason Stop Dose Admin Sodium Chloride 10 ml 06/10/18 20:58 06/10/18 21:17 Saline Flush FLUSH 10 ml ASDIRECTED PRN Administration Keep Vein Open Discontinued Medications Generic Name Dose Route Start Last Admin Trade Name Freq PRN Reason Stop Dose Admin Lorazepam 1 mg 06/10/18 21:08 06/10/18 21:16 Ativan PO 06/10/18 21:09 1 mg ONETIME ONE Administration Phytonadione 1 mg 06/10/18 21:08 06/10/18 21:16 Aquamephyton PO 06/10/18 21:09 1 mg ONETIME ONE Administration - Re-Assessments/Exams Free Text/Narrative Re-Assessment/Exam: 06/10/18 21:28 ETOH 0.31 INR not able to be measured due to extreme elevation over 8.0 (our equipment cannot measure higher) Given patient's intoxication/history of DTs, suicidal thoughts, as well as extremely elevated INR, transfer to [facility] arranged. accepted the patient. He requested that we give 1mg Vit K PO prior to transfer. Patient also received Ativan PO and placed on [address] of low back ordered earlier in patient's stay due to history of fall, patient 's pain complaints/bruising. Free Text/Narrative Re-Assessment/Exam: 06/10/18 22:51 Patient became belligerent when he found he needed to go to [facility] for his various medical issues. Nursing staff called local promotions officer who came to the ER and talked to patient. Ultimately patient agreed to go by ambulance to [facility] as planned. Departure - Departure Time of Disposition: 21:31 Disposition: DC/Tfer to Acute Hospital 02 Condition: Fair Clinical Impression: Alcohol abuse, Elevated INR, Mixed anxiety depressive disorder, Suicidal thoughts, Has access to planned means of suicide, Intoxication, Multiple contusions - Discharge Information *PRESCRIPTION DRUG MONITORING PROGRAM REVIEWED*: Not Applicable *COPY OF PRESCRIPTION DRUG MONITORING REPORT IN PATIENT DAVE: Not Applicable Forms: ED Department Discharge - My Orders Last 24 Hours: My Active Orders 06/10/18 19:49 DRUG SCREEN, URINE [URCHEM] Stat 06/10/18 20:32 Lumbar Spine wo Cont [CT] Stat 06/10/18 20:57 Saline Lock Insert [OM.PC] Stat 06/10/18 20:58 Sodium Chloride 0.9% [Saline Flush] 10 ml FLUSH ASDIRECTED PRN - Assessment/Plan Last 24 Hours: My Active Orders 06/10/18 19:49 DRUG SCREEN, URINE [URCHEM] Stat 06/10/18 20:32 Lumbar Spine wo Cont [CT] Stat 06/10/18 20:57 Saline Lock Insert [OM.PC] Stat 06/10/18 20:58 Sodium Chloride 0.9% [Saline Flush] 10 ml FLUSH ASDIRECTED PRN
[2018-06-11 02:02] VITALS: BP 130/88
== END 2018-06-10 23:30 ==
LOC: LL.ED 19:35
DX: S30.0XXA Contusion of lower back and pelvis, initial encounter (principal); F10.129 Alcohol abuse with intoxication, unspecified; R45.851 Suicidal ideations; R79.1 Abnormal coagulation profile; Y90.8 Blood alcohol level of 240 mg/100 ml or more; F41.8 Other specified anxiety disorders; W10.9XXA Fall (on) (from) unspecified stairs and steps, initial encounter
CPT/HCPCS: 36000; 36415; 72131; 80053; 80305; 85025; 85610; 99285; A9270; G0480; J7050

== ENCOUNTER 2019-07-16 05:51 | Emergency (ER) | payer OTHER ==
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
[2019-07-16 06:39] LABS: CHLORIDE,CL 97 mmol/L (98-107); SODIUM,NA 130 mmol/L (136-145)
[2019-07-16] MEDS ORDERED: Iopamidol 755 Mg/ML 100 ML Bottle IVPUSH ONE (06:47)
[2019-07-16] MEDS ORDERED: LORazepam 2 MG/ML SDV IVPUSH ONE (06:55)
[2019-07-16] MEDS ORDERED: Sodium Chloride 0.9% 1,000 ML IV ONE (06:55)
[2019-07-16] MEDS ORDERED: Thiamine 100 MG in Sodium Chloride 0.9% 100 ML IV ONE (06:56)
[2019-07-16] MEDS ORDERED: Ketorolac 30 MG/ML SDV IVPUSH ONE (06:57)
[2019-07-16] MEDS ORDERED: Sodium Chloride 0.9% 10 ML Syringe FLUSH PRN (07:32)
[2019-07-16] MEDS ORDERED: Heparin Sodium 5,000 Units/ML Vial IVPUSH ONE (08:23)
[2019-07-16] MEDS ORDERED: Heparin Sodium/D5W 25,000 UNITS/500 ML BAG IV SCH (08:30)
[2019-07-16 11:08] VITALS: BP 138/92
== END 2019-07-16 11:15 ==
LOC: LL.ED 05:51
DX: I26.99 Other pulmonary embolism without acute cor pulmonale (principal); D69.6 Thrombocytopenia, unspecified; E87.1 Hypo-osmolality and hyponatremia; F10.10 Alcohol abuse, uncomplicated; Z91.14 Patient's other noncompliance with medication regimen; Z95.2 Presence of prosthetic heart valve; I10 Essential (primary) hypertension; F17.210 Nicotine dependence, cigarettes, uncomplicated; Z79.01 Long term (current) use of anticoagulants; Z79.82 Long term (current) use of aspirin; Z79.899 Other long term (current) drug therapy; Z86.718 Personal history of other venous thrombosis and embolism; Z87.442 Personal history of urinary calculi
CPT/HCPCS: 36415; 71046; 71275; 80053; 81001; 82150; 82550; 82553; 83605; 83690; 83735; 83880; 84484; 85025; 85379; 85610; 85730; 93005; 93010; 96361; 96365; 96366; 96367; 96375; 99284; 99285-25; G0480; J1644; J1885; J2060; J3411; J3475; J7030; J7050; Q9967

== ENCOUNTER 2019-08-20 20:19 | Emergency (ER) | payer SELFPAY ==
[2019-08-20 21:07] LABS: CHLORIDE,CL 105 mmol/L (98-107); SODIUM,NA 141 mmol/L (136-145)
[2019-08-20] MEDS: Iopamidol 755 Mg/ML 100 ML Bottle IVPUSH ONE (21:19)
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
== END 2019-08-20 21:26 ==
LOC: LL.ED 20:19
DX: I63.9 Cerebral infarction, unspecified (principal); I10 Essential (primary) hypertension; M19.90 Unspecified osteoarthritis, unspecified site; Z86.718 Personal history of other venous thrombosis and embolism; Z79.82 Long term (current) use of aspirin; Z79.899 Other long term (current) drug therapy
CPT/HCPCS: 36415; 70450; 70496; 80053; 82550; 82553; 83735; 83880; 84484; 85025; 85379; 85610; 85730; 96361; 96374; 99285-25; J2997; Q9967